=== PATIENT | female | born 1980 | race Caucasian/White ===

== ENCOUNTER 2016-05-13 08:27 | Emergency (ER) | payer OTHER ==
[~2016-05-13] VITALS: Ht 165.1 cm; Wt 84.4 kg
[~2016-05-13 08:27] MED LIST: ABILIFY 10 MG10 MG PO; ABILIFY10 M1 PO; BENZTROPINE1 MG PO; CLONAZEPAM0.5 MG PO; CLONIDINE HCL0.1 MG PO; CYCLOBENZAPRINE10 M1 PO; DEXTROAMP-AMPHE30 MG PO; DIAZEPAM10 M1 PO; DICLOFENAC SODI75 M2 PO; DIVALPROEX SOD500 M1 PO; DOLOPHINE10 MG PO; DULOXETINE HCL30 MG PO; NEXIUM40 M1 PO; OXCARBAZEPINE300 MG PO; PREDNICOT20 MG PO; PROPRANOLOL HCL20 MG PO; THORAZINE50 MG PO; TOPAMAX25 M3 PO; VALIUM5 M1 PO
--- NOTE | 2016-05-13 08:40 | ED SKIN/ALLERGY COMPLAINT ---
History of Present Illness General Chief Complaint: Animal/Insect Bite Stated Complaint: SPIDER BITES ON BOTH FEET Source: patient, old records Exam Limitations: no limitations Vital Signs & Intake/Output Vital Signs & Intake/Output Vital Signs Date Time Temp Pulse Resp B/P Pulse O2 O2 Flow FiO2 Ox Delivery Rate 05/13 1256 98.7 114 18 147/86 99 Room Air 05/13 1024 100.0 118 18 160/90 98 Room Air 05/13 0831 98.0 120 20 157/93 98 Room Air Allergies Coded Allergies: Sulfa (Sulfonamide Antibiotics) (Intermediate, HIVES 05/13/16) Reconcile Medications Aripiprazole (Abilify) 10 MG TABLET 1 TAB PO DAILY MENTAL HEALTH (Reported) Clonidine HCl 0.1 MG TABLET 1 TAB PO TID MENTAL HEALTH (Reported) Dextroamphetamine/Amphetamine (Dextroamp-Amphetamin 30 MG Tab) 30 MG TABLET 1 TAB PO DAILY ADHD (Reported) Dextroamphetamine/Amphetamine (Dextroamp-Amphet ER 15 MG Cap) 15 MG CAP.ER.24H 1 CAP PO 1600 ADHD (Reported) Doxycycline Hyclate (Vibramycin) 100 MG CAPSULE 1 CAP PO BID infection Doxycycline Hyclate (Vibramycin) 100 MG CAPSULE 1 CAP PO BID infection Duloxetine HCl 30 MG CAPSULE.DR 1 CAP PO DAILY MENTAL HEALTH (Reported) Esomeprazole (Nexium) 40 MG CAPSULE.DR 1 CAP PO DAILY GI (Reported) Lorazepam (Ativan) 1 MG TABLET 1 TAB PO TID ANXIETY (Reported) Methadone HCl 10 MG/ML ORAL.CONC 110 MG PO DAILY MAINTENCE (Reported) Oxycodone HCl/Acetaminophen (Percocet 10-325 MG Tablet) 10 MG-325 MG TABLET 1 TAB PO Q6 PRN pain Oxycodone HCl/Acetaminophen (Percocet 10-325 MG Tablet) 10 MG-325 MG TABLET 1 TAB PO Q6 PRN pain Topiramate (Topamax) 25 MG TABLET 1 TAB PO DAILY MENTAL HEALTH (Reported) Triage Note: TRIAGE: PT TO ER C/C SPIDER BITES BILATERAL FEET. SEEN AT [facility]IC ON FRIDAY FOR SAME. HAS BEEN TAKING ABX AND TYLENOL. WAS ADVISED TO FOLLOW UP IN ER IF NOT IMPROVED BY TODAY. STATES NOT IMPROVING. Triage Nurses Notes Reviewed? yes : No Patient currently breastfeeds: No HPI: Patient is a 35 year old female presents complaining of bilateral foot pain and redness. Patient awoke on with symptoms. Worsening since onset. Patient was seen at an urgent care clinic on Friday and placed on Keflex 3 times a day. Also taking Benadryl 4 times a day with no improvement. Pain is sharp, 10/10, worsens with palpation. Patient with history of IV drug use, reports that she is on Methadone, has been clean for 3 years. Denies fevers, chills, nausea, vomiting, recent drug use, drainage from the area. (MARLENI SAAVEDRA) Past History Travel History Traveled to [place] past 21 day No Medical History Any Pertinent Medical History? see below for history Neurological: NONE EENT: NONE Cardiovascular: NONE Respiratory: NONE Gastrointestinal: NONE Hepatic: NONE Renal: NONE Musculoskeletal: herniated discs cervical spine Psychiatric: opioid dependence Endocrine: NONE Blood Disorders: NONE Cancer(s): NONE DRILL RIG OPERATOR HELPER/Reproductive: NONE Surgical History Surgical History: non-contributory Psychosocial History Who do you live with Friend What is your primary language Mosotho Tobacco Use: Current Daily Use Daily Tobacco Use Amount/Type: => 5 Cigarettes daily ETOH Use: denies use Illicit Drug Use: marijuana, Heroin, currently on methadone, reports no IVDA for 3 years Family History Hx Contributory? No (MARLENI SAAVEDRA) Review of Systems Review of Systems Constitutional: Denies: chills, fever. EENTM: Reports: no symptoms. Respiratory: Reports: no symptoms. Cardiovascular: Denies: chest pain. GI: Denies: abdominal pain, nausea, vomiting. Genitourinary: Reports: no symptoms. Musculoskeletal: Reports: see HPI. Skin: Reports: see HPI. Neurological/Psychological: Denies: numbness, paresthesia. Hematologic/Endocrine: Denies: bruising, bleeding. Immunologic/Allergic: Denies: splenectomy. (MARLENI SAAVEDRA) Physical Exam Physical Exam General Appearance: alert, awake Head: atraumatic, normal appearance Eyes: Bilateral: normal appearance, PERRL, EOMI. Ears, Nose, Throat: hearing grossly normal Neck: normal inspection, supple, full range of motion Respiratory: no respiratory distress Cardiovascular: tachycardia (regular rhythm) Peripheral Pulses: 2+ dorsalis pedis (R), 2+ dorsalis pedis (L) Back: normal inspection, normal range of motion Extremities: right foot: 16 cm x 10 cm area of erythema, warmth, tenderness to the lateral dorsal surface. No fluctuance. Left foot: 11 cm x 7 cm area of erythema, warmth, tenderness to the dorsal surface. 0.5 cm raised area in the center. Vein vs abscess? Neurologic/Psych: awake, alert, oriented x 3 Skin: see extremities exam (SHAR ROMERO,MARLENI) Progress Differential Diagnosis: abscess/cellulitis, foreign body, necrotizing fasciitis Plan of Care: Orders Procedure Date/time Status LACTIC ACID 05/13 1154 Complete EXTREMETIES CULTURE 05/14 1151 Active BLOOD CULTURE 05/13 854 Active URINE DRUGS OF ABUSE 05/13 854 Complete URINE 05/13 854 Complete LACTIC ACID 05/13 854 Complete COMPREHENSIVE METABOLIC PANEL 05/13 854 Complete CBC WITHOUT DIFFERENTIAL 05/13 854 Complete Laboratory Tests 05/13/16 1148: Lactic Acid 2.2 H 05/13/16 1013: Urine Opiates Screen < 100.00, Methadone Screen > 735 H, Barbiturate Screen < 60, Ur Phencyclidine Scrn 9.50, Amphetamines Screen > 1450 H, U Benzodiazepines Scrn 176, Urine Cocaine Screen < 50, Urine Cannabis Screen > 80.00 H, Urine Test NEGATIVE 05/13/16 0910: Anion Gap 10, Estimated GFR > 60, BUN/Creatinine Ratio 10.0, Glucose 115 H, Lactic Acid 2.3 H, Calcium 9.6, Total Bilirubin 0.4, AST 53 H, ALT 99 H, Alkaline Phosphatase 92, Total Protein 7.3, Albumin 4.0, Globulin 3.3, Albumin/ Globulin Ratio 1.2, CBC w Diff NO MAN DIFF REQ, RBC 4.35, MCV 87.7, MCH 29.6, RDW 13.0, MPV 8.8, Gran % 57.4, Lymphocytes % 30.0, Monocytes % 5.2, Eosinophils % 7.0 H, Basophils % 0.4, Absolute Granulocytes 4.5, Absolute Lymphocytes 2.3, Absolute Monocytes 0.4, Absolute Eosinophils 0.5, Absolute Basophils 0, PUBS MCHC 33.8 Microbiology 05/13 115 EXTREMITIE: Culture & Sensitivity - RECD 05/13 115 EXTREMITIE: Gram Stain - RECD 05/13 1008 BLOOD: Blood Culture - RECD 05/13 0910 BLOOD: Blood Culture - RECD Patient is on methadone. No improvement with Toradol. Discussed with her, her history of opiate abuse, patient reports she has received other pain medication prescriptions without relapase. Patient requesting further pain medication. Results discussed with patient. Patient requesting further pain medication. Discussed with and seen by Dr. Laguerre. When patient informed that she would not be receiving IV pain medication patient became very upset and argumentative with staff. (SHAR ROMERO,MARLENI) Diagnostic Imaging: Viewed by Me: Ultrasound. Discussed w/RAD: Ultrasound. Radiology Impression: PATIENT: KELTON TAYLOR PRESENT AGE: 35 PATIENT ACCOUNT NO: [id number] : 82 LOCATION: [facility] ORDERING PHYSICIAN: MARLENI ROMERO SERVICE DATE: 05/13/16 EXAM TYPE: US - US-SUPERFICIAL IMAGING EXTREMI EXAMINATION: US SUPERFICIAL IMAGING, EXTREMITY CLINICAL INFORMATION: Infection in the left foot, dorsal surface. Evaluate for abscess. COMPARISON: None TECHNIQUE: Focused ultrasound assessment of the dorsal left midfoot was performed in region of patient's erythema and tenderness. FINDINGS: There is diffuse skin thickening present with some hyperemia demonstrated on color Doppler assessment. In addition, there is an irregularly shaped slightly thick walled hypoechoic fluid collection with low-level internal echoes is seen in the deeper layers of the skin, measuring 1.6 x 0.7 x 1.2 cm with surrounding hyperemia, suspicious for a small localized abscess collection. This is superficial to the underlying musculature and bones. No drainage site to the skin is seen. IMPRESSION: Above findings are consistent with diffuse cellulitis and small localized complex fluid collection, suspicious for an abscess. DICTATED BY: MARIA GUADALUPE SHARMA MD DATE/TIME DICTATED:05/13/16935 PULP DRIER:DOMENICA DATE/TIME TRANSCRIBED:05/13/16935 CONFIDENTIAL, DO NOT COPY WITHOUT APPROPRIATE AUTHORIZATION. <Electronically signed in Other Vendor System> SIGNED BY: MARIA GUADALUPE SHARMA MD 05/13/16 0943, PATIENT: KELTON TAYLOR PRESENT AGE: 35 PATIENT ACCOUNT NO: [id number] : 82 LOCATION: [facility] ORDERING PHYSICIAN: MARLENI ROMERO SERVICE DATE: 05/13/16 EXAM TYPE: RAD - XRY-FOOT COMPLETE, LEFT; XRY-FOOT COMPLETE, R EXAMINATION: XR FOOT, RIGHT XR FOOT, LEFT CLINICAL INFORMATION: Infection bilateral dorsally, question osteomyelitis. COMPARISON: None TECHNIQUE : 3 views FINDINGS: Bone mineral density is maintained without evidence of fracture or focal osseous lesions. Joint space height appears well-maintained. No destructive or sclerotic osseous lesions. There is mild circumferential soft tissue prominence. IMPRESSION: No evidence of osteomyelitis. DICTATED BY: LEVI JARVIS MD DATE/TIME DICTATED:05/13/161107 PULP DRIER:DOMENICA DATE/TIME TRANSCRIBED:05/13/161107 CONFIDENTIAL, DO NOT COPY WITHOUT APPROPRIATE AUTHORIZATION. <Electronically signed in Other Vendor System> SIGNED BY: LEVI JARVIS MD 05/13/16 1120 (MARLENI SAAVEDRA) Departure Departure Disposition: HOME OR SELF CARE Condition: Stable Clinical Impression Primary Impression: Cellulitis of foot, right Secondary Impressions: Abscess of left foot Referrals: DEMETRIUS MATAMOROS Additional Instructions: Stop taking the Keflex, start taking doxycycline. Return to the emergency department on Friday for recheck. Return immediately if temperature going above 100.4, redness spreading, or worsening of symptoms. Departure Forms: Customer Survey General Discharge Information Prescriptions: Current Visit Scripts Doxycycline Hyclate (Vibramycin) 1 CAP PO BID #14 CAP Oxycodone HCl/Acetaminophen (Percocet 10-325 MG Tablet) 1 TAB PO Q6 PRN pain #8 TAB Doxycycline Hyclate (Vibramycin) 1 CAP PO BID #14 CAP Oxycodone HCl/Acetaminophen (Percocet 10-325 MG Tablet) 1 TAB PO Q6 PRN pain #8 TAB (MARLENI SAAVEDRA) Departure Comments 05/13/16 2 PM 2 PM I saw and evaluated the patient and I agree with the PAs evaluation. She has cellulitis to the right ankle and status post I&D of abscess to the left foot. The patient was insistent upon getting stronger pain medication. We discussed discussed non-opiate analgesics, and a short course of Percocet, she is currently on methadone. The patient will be reevaluated after 48 hours of antibiotics. (ZOE LAGUERRE DO
[2016-05-13 09:23] LABS: ABSOLUTE BASOPHIL COUNT 0 /CUMM (0.0-0.2); ABSOLUTE EOSINOPHIL COUNT 0.5 /CUMM (0.0-0.7); ABSOLUTE GRANULOCYTE CT 4.5 /CUMM (1.4-6.5); ABSOLUTE LYMPH COUNT 2.3 /CUMM (1.2-3.4); ABSOLUTE MONOCYTE COUNT 0.4 /CUMM (0.10-0.60); BASOPHIL % 0.4 % (0.0-2.0); GRANULOCYTE % 57.4 % (42.2-75.2); HEMATOCRIT 38.1 % (37-47); MEAN CORPUSCULAR HGB 29.6 PG (27.0-31.0); MEAN CORPUSCULAR HGB CONC 33.8 G/DL (33.0-37.0); MEAN CORPUSCULAR VOLUME 87.7 FL (81.0-99.0); MEAN PLATELET VOLUME 8.8 FL (7.4-10.4); PLATELET COUNT 239 /CUMM (130-400); RED BLOOD CELL CT 4.35 /CUMM (4.20-5.40); WHITE BLOOD CELL COUNT 7.8 /CUMM (4.8-10.8)
--- NOTE | 2016-05-13 09:43 | ULTRASOUND REPORT ---
EXAMINATION: US SUPERFICIAL IMAGING, EXTREMITY CLINICAL INFORMATION: Infection in the left foot, dorsal surface. Evaluate for abscess. COMPARISON: None TECHNIQUE: Focused ultrasound assessment of the dorsal left midfoot was performed in region of patient's erythema and tenderness. FINDINGS: There is diffuse skin thickening present with some hyperemia demonstrated on color Doppler assessment. In addition, there is an irregularly shaped slightly thick walled hypoechoic fluid collection with low-level internal echoes is seen in the deeper layers of the skin, measuring 1.6 x 0.7 x 1.2 cm with surrounding hyperemia, suspicious for a small localized abscess collection. This is superficial to the underlying musculature and bones. No drainage site to the skin is seen. IMPRESSION: Above findings are consistent with diffuse cellulitis and small localized complex fluid collection, suspicious for an abscess.
[2016-05-13] MEDS ORDERED: ATIVAN1 M1 PO (10:24)
[2016-05-13] MEDS ORDERED: DEXTROAMP-AMPHE15 M1 PO (10:25)
[2016-05-13] MEDS ORDERED: METHADONE10 MG/1 M2 PO (10:26)
--- NOTE | 2016-05-13 11:20 | RADIOLOGY REPORT ---
EXAMINATION: XR FOOT, RIGHT XR FOOT, LEFT CLINICAL INFORMATION: Infection bilateral dorsally, question osteomyelitis. COMPARISON: None TECHNIQUE: 3 views FINDINGS: Bone mineral density is maintained without evidence of fracture or focal osseous lesions. Joint space height appears well-maintained. No destructive or sclerotic osseous lesions. There is mild circumferential soft tissue prominence. IMPRESSION: No evidence of osteomyelitis.
[2016-05-13 12:56] VITALS: BP 147/86
[2016-05-13] MEDS ORDERED: VIBRAMYCIN100 MG PO ×2 (13:00→14:09)
[2016-05-13] MEDS ORDERED: PERCOCET 10-321 EACH PO ×2 (13:00→14:09)
== END 2016-05-13 14:15 ==
LOC: ERH 08:27
PROVIDERS: Physician Assistant
DX: L02.612 Cutaneous abscess of left foot (principal); L03.115 Cellulitis of right lower limb
CPT/HCPCS: 73630-LT; 73630-RT; 76881; 80307; 81025; 87040; 87070; 96374; 96375; J1885; J3370; J7040

== ENCOUNTER 2016-05-15 09:22 | Emergency (ER) | payer OTHER ==
[~2016-05-15] VITALS: Ht 165.1 cm; Wt 84.4 kg
[~2016-05-15 09:22] MED LIST changes: +ATIVAN1 M1 PO; +DEXTROAMP-AMPHE15 M1 PO; +METHADONE10 MG/1 M2 PO; +PERCOCET 10-321 EACH PO; +VIBRAMYCIN100 MG PO
[2016-05-15 09:30] VITALS: BP 129/87
--- NOTE | 2016-05-15 09:48 | ED ANIMAL BITE/WOUND CHECK ---
History of Present Illness General Chief Complaint: Suture Removal/Wound Recheck Stated Complaint: WOUND CHECK Source: patient, old records Exam Limitations: no limitations Vital Signs & Intake/Output Vital Signs & Intake/Output Vital Signs Date Time Temp Pulse Resp B/P Pulse O2 O2 Flow FiO2 Ox Delivery Rate 05/15 0930 96.7 86 20 129/87 98 Room Air Allergies Coded Allergies: Sulfa (Sulfonamide Antibiotics) (Intermediate, HIVES 05/13/16) Reconcile Medications Aripiprazole (Abilify) 10 MG TABLET 1 TAB PO DAILY MENTAL HEALTH (Reported) Clonidine HCl 0.1 MG TABLET 1 TAB PO TID MENTAL HEALTH (Reported) Dextroamphetamine/Amphetamine (Dextroamp-Amphetamin 30 MG Tab) 30 MG TABLET 1 TAB PO DAILY ADHD (Reported) Dextroamphetamine/Amphetamine (Dextroamp-Amphet ER 15 MG Cap) 15 MG CAP.ER.24H 1 CAP PO 1600 ADHD (Reported) Doxycycline Hyclate (Vibramycin) 100 MG CAPSULE 1 CAP PO BID infection Duloxetine HCl 30 MG CAPSULE.DR 1 CAP PO DAILY MENTAL HEALTH (Reported) Esomeprazole (Nexium) 40 MG CAPSULE.DR 1 CAP PO DAILY GI (Reported) Lorazepam (Ativan) 1 MG TABLET 1 TAB PO TID ANXIETY (Reported) Methadone HCl 10 MG/ML ORAL.CONC 110 MG PO DAILY MAINTENCE (Reported) Oxycodone HCl/Acetaminophen (Percocet 10-325 MG Tablet) 10 MG-325 MG TABLET 1 TAB PO Q6 PRN pain Topiramate (Topamax) 25 MG TABLET 1 TAB PO DAILY MENTAL HEALTH (Reported) Triage Note: PT TO ED FOR WOUND CHECK TO B/L FEET. PT WAS HERE FRIDAY FOR "ABSCESS" TO LEFT FOOT STATES IT "WAS LANCED". STATES SHE JUST VOMITED IN THE BATHROOM FROM THE PAIN. PT NOTED WITH SANCHEZ SANDOVAL, ADVISED THAT IF SHE JUST VOMITED, SHE SHOULD REMAIN NPO AT THIS TIME. Triage Nurses Notes Reviewed? yes Onset: Abrupt Duration: day(s):, constant, continues in ED Timing: recent history Injury Environment: home No Modifying Factors: none : No Patient currently breastfeeds: No HPI: 35-year-old female comes into emergency room for wound check to her feet. Patient was seen here the other day and had an abscess drained on the left foot. Patient also had a cellulitis. Patient was treated with oral antibiotics. Patient comes back in today for packing removal. Redness has decreased. Patient still complaining of sharp throbbing pain. Denies any fever or chills. (MARLENE SADLER) Past History Travel History Traveled to [place] past 21 day No Medical History Any Pertinent Medical History? see below for history Neurological: NONE EENT: NONE Cardiovascular: NONE Respiratory: NONE Gastrointestinal: NONE Hepatic: NONE Renal: NONE Musculoskeletal: herniated discs cervical spine Psychiatric: opioid dependence Endocrine: NONE Blood Disorders: NONE Cancer(s): NONE GUEST SERVICE HOST/Reproductive: NONE Surgical History Surgical History: non-contributory Psychosocial History Who do you live with Friend What is your primary language Tanzanian Tobacco Use: Current Daily Use Daily Tobacco Use Amount/Type: => 5 Cigarettes daily ETOH Use: denies use Illicit Drug Use: denies illicit drug use Family History Hx Contributory? No (MARLENE SADLER) Review of Systems Review of Systems Constitutional: Reports: no symptoms. EENTM: Reports: no symptoms. Respiratory: Reports: no symptoms. Cardiovascular: Reports: no symptoms. GI: Reports: no symptoms. Genitourinary: Reports: no symptoms. Musculoskeletal: Reports: no symptoms. Skin: Reports: see HPI. Neurological/Psychological: Reports: no symptoms. Hematologic/Endocrine: Reports: no symptoms. Immunologic/Allergic: Reports: no symptoms. All Other Systems: Reviewed and Negative (MARLENE SADLER) Physical Exam Physical Exam General Appearance: well developed/nourished, mild distress Head: atraumatic Eyes: Bilateral: normal appearance. Ears, Nose, Throat: normal ENT inspection, hearing grossly normal Neck: normal inspection Respiratory: no respiratory distress Cardiovascular: regular rate/rhythm Back: normal inspection Extremities: erythema and warmth to feet bilaterally, erythema has significant decrease according to the borders that were drawn from previous visit, cap Refill intact Neurologic/Psych: awake, alert, oriented x 3, normal mood/affect Skin: intact, normal color, warm/dry Lymphatic: no anterior cervical janusz (MARLENE SADLER) Progress Differential Diagnosis: abscess, cellulitis, joint infection, tenosysnovitis Plan of Care: Orders Procedure Date/time Status EXTREMETIES CULTURE 05/15 1007 Active Microbiology 05/15 1007 EXTREMITIE: Culture & Sensitivity - RECD 05/15 1007 EXTREMITIE: Gram Stain - RECD Departure Departure Disposition: HOME OR SELF CARE Condition: Stable Clinical Impression Primary Impression: Cellulitis and abscess of foot Secondary Impressions: Wound check, abscess Referrals: CLARISA ROMERO,MAYTE Lau (PCP/Family) Additional Instructions: Warm soaks to both feet. Continue antibiotics. Return in 3 days for another wound check. Return if any other concerns/worsening of symptoms. Please go over all results of today's visit with your primary care doctor. Contact your primary care doctor to let them know you were here in the emergency room. There may be nonspecific findings which may not be related to your visit today here in the emergency room but may require further evaluation and chronic monitoring by your primary care doctor. If you had a laceration today the chance of foreign body always remains. You should follow-up with your primary care doctor for recheck in 3-5 days for a wound check. If you had an x-ray done there is a chance that a fracture could have been missed on initial read and you should follow-up with your primary care doctor for repeat x-rays if symptoms persist. If your blood pressure was elevated here in the emergency room please have rechecked by her primary care doctor within the next 48 hours by your primary care doctor. If you were prescribed a narcotic here in the emergency room or any type of controlled substances you're not allowed to drive while taking this medication or operate any type of heavy machinery. Narcotics can make you feel lightheaded dizziness nausea and can cause constipation. You may need to roll picker a stool softener. Thank you for choosing [facility] emergency room. Please return to the emergency room immediately if you have any other concerns worsening of symptoms. Departure Forms: Customer Survey General Discharge Information (MARLENE SADLER) PA/STENCIL CUTTER Co-Sign Statement Statement: ED Attending supervision documentation- [] I saw and evaluated the patient. I have also reviewed all the pertinent lab results and diagnostic results. I agree with the findings and the plan of care as documented in the PA's/STENCIL CUTTER's documentation. x I have reviewed the ED Record and agree with the PA's/STENCIL CUTTER's documentation. [] Additions or exceptions (if any) to the PAs/STENCIL CUTTER's note and plan are summarized below: [] (KOBI FERREIRA,ÓSCAR) Procedures Incision and Drainage Site: right foot Blade Size: 11 I & D Procedure: Yes: betadine prep, sterile drapes applied, sterile dressing applied. Progress: 1% lidocaine, 3 mL injected, Performed by PA student with my supervision (MARLENE SADLER)
== END 2016-05-15 10:41 ==
LOC: ERH 09:22
DX: L02.612 Cutaneous abscess of left foot (principal); L03.116 Cellulitis of left lower limb
CPT/HCPCS: 87070

== ENCOUNTER 2016-07-31 10:51 | Inpatient (IN) | payer OTHER ==
[~2016-07-31] VITALS: Ht 165.1 cm; Wt 84.4 kg
--- NOTE | 2016-07-31 11:02 | NUR ---
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
--- NOTE | 2016-07-31 11:07 | ED PSYCHIATRIC COMPLAINT ---
History of Present Illness General Chief Complaint: ETOH/Drug Related Complaint Stated Complaint: PSYCH EVAL FOR DEPRESSION,ETOH WITHDRAWL Source: patient, family, old records Exam Limitations: poor historian, intoxication Vital Signs & Intake/Output Vital Signs & Intake/Output Vital Signs Date Time Temp Pulse Resp B/P B/P Pulse O2 O2 Flow FiO2 Mean Ox Delivery Rate 08/01 0541 97.8 71 20 104/56 95 Room Air 07/31 2230 97.1 75 17 111/60 96 Room Air 07/31 2004 97.0 78 18 105/55 97 Room Air 07/31 1800 98.0 77 16 100/59 96 Room Air 07/31 1530 97.8 82 17 108/54 96 Room Air 07/31 1315 97.2 86 16 110/66 96 Room Air 07/31 1102 98.3 89 18 114/74 100 Room Air ED Intake and Output 08/01 0000 07/31 1200 Intake Total Output Total 1 Balance -1 Output, Urine 1 Patient 185 lb Weight Weight Reported by Patient Measurement Method Allergies Coded Allergies: Sulfa (Sulfonamide Antibiotics) (Intermediate, HIVES 05/13/16) Reconcile Medications Aripiprazole (Abilify) 10 MG TABLET 1 TAB PO DAILY MENTAL HEALTH (Reported) Clonidine HCl 0.1 MG TABLET 1 TAB PO TID MENTAL HEALTH (Reported) Dextroamphetamine/Amphetamine (Dextroamp-Amphetamin 30 MG Tab) 30 MG TABLET 1 TAB PO DAILY ADHD (Reported) Dextroamphetamine/Amphetamine (Dextroamp-Amphet ER 15 MG Cap) 15 MG CAP.ER.24H 1 CAP PO 1600 ADHD (Reported) Doxycycline Hyclate (Vibramycin) 100 MG CAPSULE 1 CAP PO BID infection Duloxetine HCl 30 MG CAPSULE.DR 1 CAP PO DAILY MENTAL HEALTH (Reported) Esomeprazole (Nexium) 40 MG CAPSULE.DR 1 CAP PO DAILY GI (Reported) Lorazepam (Ativan) 1 MG TABLET 1 TAB PO TID ANXIETY (Reported) Methadone HCl 10 MG/ML ORAL.CONC 110 MG PO DAILY MAINTENCE (Reported) Oxycodone HCl/Acetaminophen (Percocet 10-325 MG Tablet) 10 MG-325 MG TABLET 1 TAB PO Q6 PRN pain Topiramate (Topamax) 25 MG TABLET 1 TAB PO DAILY MENTAL HEALTH (Reported) Triage Note: PT TO ED WITH [facility] FOR PASSIVE AND INTERMITTENT SI, PT CURRENTLY DENIES SI BUT PRESENTS LETHARGIC AND 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 Triage Nurses Notes Reviewed? yes Unable To Obtain Hx Due To: patient intoxication Onset: Abrupt Duration: day(s): (12), changing over time, continues in ED Timing: single episode today Severity: mild, moderate Associated Symptoms: suicidal ideation, CUTTING LMP (ages 10-50): unknown : No Patient currently breastfeeds: No HPI: 36-year-old female with past medical history of depression, crack cocaine abuse, brought in by for evaluation of substance abuse and possible suicidal ideation. reports that patient had been missing since 2 AM this morning. When her finally saw her she had multiple superficial lacerations to the left forearm he was very intoxicated. Patient had reported she had been smoking crack cocaine and had been cutting herself due to lots of stress. She reports the stress is related to her home situation. Patient denies any history of previous suicide attempts but has cut herself previously. Patient also reports using benzodiazepines and methadone. Her last dose of methadone was today states 110 mg. She denies any chest pain, shortness of breath, palpitations, severe headache, changes in vision, or any other associated symptoms. She denies any alcohol abuse. (BRAVO BARRAGAN PA-C) Past History Travel History Traveled to [place] past 21 day No Medical History Any Pertinent Medical History? see below for history Neurological: NONE EENT: NONE Cardiovascular: NONE Respiratory: NONE Gastrointestinal: NONE Hepatic: NONE Renal: NONE Musculoskeletal: herniated discs cervical spine Psychiatric: opioid dependence Endocrine: NONE Blood Disorders: NONE Cancer(s): NONE BURNER SHAFT/Reproductive: NONE Surgical History Surgical History: non-contributory Psychosocial History Who do you live with Friend What is your primary language Pashto Tobacco Use: Current Daily Use Daily Tobacco Use Amount/Type: => 5 Cigarettes daily ETOH Use: alcoholic Illicit Drug Use: cocaine, heroin, marijuana Family History Hx Contributory? No (BRAVO BARRAGAN PA-C) Review of Systems Review of Systems Constitutional: Reports: no symptoms. EENTM: Reports: no symptoms. Respiratory: Reports: no symptoms. Cardiovascular: Reports: no symptoms. GI: Reports: no symptoms. Genitourinary: Reports: no symptoms. Musculoskeletal: Reports: no symptoms. Skin: Reports: no symptoms. Neurological/Psychological: Reports: see HPI, anxiety, depressed, other (cutting). Hematologic/Endocrine: Reports: no symptoms. Immunologic/Allergic: Reports: no symptoms. All Other Systems: Reviewed and Negative (BRAVO BARRAGAN PA-C) Physical Exam Physical Exam General Appearance: well developed/nourished, no apparent distress, anxious, lethargic Head: atraumatic, normal appearance Eyes: Bilateral: normal appearance, PERRL, EOMI. Ears, Nose, Throat: normal pharynx, normal ENT inspection, hearing grossly normal Neck: normal inspection, supple, full range of motion Respiratory: normal breath sounds, chest non-tender, no respiratory distress, lungs clear Cardiovascular: regular rate/rhythm, normal peripheral pulses Gastrointestinal: normal bowel sounds, soft, non-tender, no organomegaly Extremities: normal range of motion Neurological/Psychiatric: no motor/sensory deficits, awake, anxious, oriented x 3 Appearance/Memory/Insight: appropriate appearance, appropriate insight, denies illness Behavoir/Eye Contact/Speech: cooperative, normal speech, good eye contact Thoughts/Hallucinations: normal thought pattern, no apparent hallucination Skin: intact, normal color, warm/dry Comments: Patient appears very lethargic with her eyes closed most the time. She is answering questions and is alert and oriented 3. There are multiple lacerations located on the left anterior forearm. No active bleeding is present, no swelling, no erythema, no discharge. No subcutaneous tissue is visible. SAD PERSONS Done? unobtained due to conditi (BRAVO BARRAGAN PA-C) Progress Differential Diagnosis: drug intoxication, drug overdose, drug withdrawal, electrolyte abnormality, depression. SI Plan of Care: Orders Procedure Date/time Status Regular Diet 08/01 B Active Admit to inpatient psych 08/01 1005 Active Continuous Observation Monitor 08/01 0649 Active Continuous Observation Monitor 07/31 1122 Active URINE 07/31 1122 Complete URINE DRUG SCREEN FOR ER ONLY 07/31 1122 Complete URINALYSIS 07/31 1122 Complete TROPONIN LEVEL 07/31 1122 Complete MAGNESIUM 07/31 1122 Complete ETHANOL 07/31 1122 Complete COMPREHENSIVE METABOLIC PANEL 07/31 1122 Complete CBC WITHOUT DIFFERENTIAL 07/31 1122 Complete EKG 07/31 1122 Active ED CRISIS PSYCH CONSULT 07/31 1122 Active Current Medications Sig/Bella Start time Last Medication Dose Stop Time Status Admin Methadone HCl 110 MG DAILY 08/01 1000 AC (Dolophine) Laboratory Tests 07/31/16 2225: Urine Opiates Screen < 100.00, Methadone Screen > 735 H, Barbiturate Screen 70, Ur Phencyclidine Scrn 10.00, Amphetamines Screen > 1450 H, U Benzodiazepines Scrn 126, Urine Cocaine Screen > 1000 H, Urine Cannabis Screen 78.00 H, Urine Color YEL, Urine Clarity CLEAR, Urine pH 6.0, Ur Specific [place] >= 1.030, Urine Protein NEG, Urine Ketones NEG, Urine Nitrite NEG, Urine Bilirubin NEG, Urine Urobilinogen 1.0, Ur Leukocyte Esterase NEG, Ur Microscopic EXAM NOT REQUIRED, Urine Hemoglobin NEG, Urine Glucose NEG, Urine Test NEGATIVE 07/31/16 1137: Anion Gap 10, Estimated GFR > 60, BUN/Creatinine Ratio 13.8, Glucose 78, Calcium 9.4, Magnesium 2.0, Total Bilirubin 0.5, AST 19, ALT 25, Alkaline Phosphatase 40 , Troponin I < 0.01, Total Protein 6.8, Albumin 4.4, Globulin 2.4, Albumin/ Globulin Ratio 1.8, CBC w Diff NO MAN DIFF REQ, RBC 4.26, MCV 86.9, MCH 29.3, RDW 14.1, MPV 9.2, Gran % 54.4, Lymphocytes % 36.0, Monocytes % 6.3, Eosinophils % 2.9, Basophils % 0.4, Absolute Granulocytes 3.5, Absolute Lymphocytes 2.3, Absolute Monocytes 0.4, Absolute Eosinophils 0.2, Absolute Basophils 0, PUBS MCHC 33.7, Serum Alcohol < 10.0 Patient will have basic blood work and EKG to ensure she is medically stabilized. She will then have a crisis consult. Blood work is within normal limits. Patient has still not provided us with a urine. We are also waiting on a crisis consult. 6:39 PM: Patient is still not provided here and she has been asleep in her room. Vital signs have remained stable. 11 3 PM spoke with crisis. They're to watch her overnight and reevaluate her in the morning. Patient was advised to drink plenty fluids as her urine was quite concentrated. Crisis also asked for her home meds be put in his given Abilify clonidine duloxetine Ativan and wellbutrin.pt will be signed out to Dr Gil. (YUNG GERMAN,BRAVO) Diagnostic Imaging: Viewed by Me: Radiology Read. Initial ED EKG: nsr, BORDERLINE PROLONGED QT Hand-Off Endorsed To: CEFERINO GIL MD Endorsed Time: 2318 Pending: consult (crisis) (BRAVO BARRAGAN PA-C) Hand-Off Endorsed To: RASHARD SAM MD Endorsed Time: 07 Pending: consult (CEFERINO GIL MD) Departure Departure Disposition: STILL A PATIENT Condition: Stable Referrals: MAYTE CARDONA (PCP/Family) Departure Forms: Customer Survey General Discharge Information (BRAVO BARRAGAN PA-C) Departure Clinical Impression Primary Impression: Major depression Secondary Impressions: Cocaine abuse, Intentional self-harm Psych Admission Note Psychiatric Admission: I have seen and evaluated BRANDONKELTON. I have also reviewed all the pertinent lab results and diagnostic results. BRANDONKELTON MOBLEY will be admitted to our inpatient Psychiatric unit for treatment and care. (RASHARD SAM MD)
--- NOTE | 2016-07-31 11:20 | NUR ---
PATIENT WAS BROUGHT TO ER BY RAQUEL AND NOTED TO BE VERY SLEEPY AND CONTINOUSLY FALLING ASLEEP WHILE ATTEMPTING TO INTERVIEW HER. PER FIANCE PT DISAPPEARED SINCE 2AM AND HE JUST FOUND HER. PT ARRIVES VERY DROWZY AND DIFFICULT TO AROUSE BUT ABLE TO SPEAK IN ONE TO TWO SENTENCES WHEN FINALLY AROUSED. PT STS SHE SMOKED CRACK COCAINE,MARIJUANA AND CIGARETTES. PT STS SHE ALSO TOOK HER DOSE OF METHADONE WHICH IS 110 MG, ALSO ON ATIVAN BUT STS SHE DID NOT TAKE ANY TODAY. PT ALSO NOTED TO HAVE LT ARM SUPERFICIAL CUTTINGS TO ARM THAT SHE STS OCCURRED THIS MORNING AND PER RAQUEL SHE DID NOT HAVE THAT PRIOR TO HER DISAPPEARANCE. PT STS SHE IS +SI/HI AND VERY STRESSED WHICH CAUSED HER TO ACT THE WAY SHE DID. PT STS SHE LEAVES ON [place] AND EVERYONE JUST COMES AND GOES THEY PLEASED AND SHE HAS NO PRIVACY. PT INFORMED OF ALL OF OUR PROTOCOLS AND AGREEABLE, ALSO REQUESTED TO HAVE RAQUEL TAKE ALL HER VALUABLES. [facility] PT WAS EVALUATED BY HEATHER BARRAGAN
--- NOTE | 2016-07-31 11:37 | NUR ---
KELTON TAYLOR Nurse Note by: ARPIT RAO. I agree with the AUCTIONEER ART findings/evaluation of this patient's condition. Entered by: ARPIT RAO. Date: 07/31/16 Time: 0387
--- NOTE | 2016-07-31 11:38 | NUR ---
ANA AND LABS BEEN COMPLETED BY [facility] CLARISSE Elkins
[2016-07-31 11:52] LABS: ABSOLUTE BASOPHIL COUNT 0 /CUMM (0.0-0.2); ABSOLUTE EOSINOPHIL COUNT 0.2 /CUMM (0.0-0.7); ABSOLUTE GRANULOCYTE CT 3.5 /CUMM (1.4-6.5); ABSOLUTE LYMPH COUNT 2.3 /CUMM (1.2-3.4); ABSOLUTE MONOCYTE COUNT 0.4 /CUMM (0.10-0.60); BASOPHIL % 0.4 % (0.0-2.0); EOSINOPHIL % 2.9 % (0-5); GRANULOCYTE % 54.4 % (42.2-75.2); MEAN CORPUSCULAR HGB 29.3 PG (27.0-31.0); MEAN CORPUSCULAR HGB CONC 33.7 G/DL (33.0-37.0); MEAN CORPUSCULAR VOLUME 86.9 FL (81.0-99.0); MEAN PLATELET VOLUME 9.2 FL (7.4-10.4); PLATELET COUNT 192 /CUMM (130-400); RBC DISTRIBUTION WIDTH 14.1 % (11.5-14.5); RED BLOOD CELL CT 4.26 /CUMM (4.20-5.40); WHITE BLOOD CELL COUNT 6.5 /CUMM (4.8-10.8)
--- NOTE | 2016-07-31 12:39 | NUR ---
UNABLE TO VERIFY HOME MEDS DUE TO CURRENT CIRCUMSTANCES
--- NOTE | 2016-07-31 13:16 | NUR ---
PT NOTED SNORRING BUT VERY DIFFICULT TO AROUSE. ATTEMPT TO PROVIDE URINE UNSUCCESSFUL
--- NOTE | 2016-07-31 14:26 | NUR ---
LABS DRAWN. SST, LAV, BLUE AND ST
--- NOTE | 2016-07-31 14:30 | NUR ---
PT STILL SLEEPING WITH REGULAR RESPIRATIONS AND NO DISTRESS NOTED. STILL AROUSABLE WITH TOUCH. SITTER REMAINS AT DOOR
--- NOTE | 2016-07-31 15:54 | NUR ---
PT STILL SLEEPING AND NO DISTRESS AND SITTER AT BEDSIDE
--- NOTE | 2016-07-31 17:12 | NUR ---
PT STILL VERY SLEEPY BUT AWAKENS TO VERBAL/TOUCH AROUSAL. SITTER REMAINS AT DOOR
--- NOTE | 2016-07-31 18:01 | NUR ---
PT OFFERED SOMETHING TO EAT AND STILL SLEEPY TO EASILY AROUSED AND OFFERED MEAL BUT DECLINED FAMILY AT BEDSIDE TO VISIT NOW
--- NOTE | 2016-07-31 20:15 | NUR ---
PT AWOKE AND ATE AND DRANK SOMETHING BUT STILL SLEEPING BUT NOW RESPONDS TO NAME AND ATTEMPTS TO RISE. NO DISTRESS AND SITTER AT DOOR
--- NOTE | 2016-07-31 22:28 | NUR ---
PT AWAKE AND AWARE OF SURROUNDINGS, STS SHE REMEMBERS COMING IN AND FAMILY VISITING LATER TODAY BUT NOT ANYTHING MUCH. PT PROVIDED URINE AND ALSO REQUESTED TO HAVE SOME WATER. PT GIVEN SNACK AND WATCHING TV. VITALS COMPLETED
--- NOTE | 2016-07-31 23:22 | ED PSYCH CRISIS CONSULTATION ---
Crisis Consult Basic Assessment Date of Consult: 07/31/16 Responsible Person/Accompanied By: self Insurance Authorization: Insurance #1: Insurance name: MARGO George C&A Phone number: Policy number: [id number] Group number: Authorization number: ED Provider: Patient's ED Provider: BRAVO BARRAGAN PA-C Primary Care Physician: Patient's PCP: MAYTE CARDONA PCP's Current Psychiatrist: Dr Gonsalez Chief Complaint: ETOH/Drug Related Complaint Patient's Quote: I'm suicidal all the time Present Illness: Pt is a 36 yo female brought to [place] ED this morning by her fiance. Pt reports leaving the home at 2am to score crack cocaine. Pt reports that she was clean for 2.5 yrs after an inpatient detox at [facility]. Pt reports long standing hx of mental health and substance abuse and has been on methadone maintence past 10yrs. Pt reports receiving methadone 110mg at [place] and is treated for depression and bipolar personality d/o by Dr Whipple in [place]. Pt reports increase stress and depression prior to relapse. Pt gave self-inflicted cuts to arm early this morning "to try to take away the pain". Pt reports being suicidal "all the time" and lately wishes she would act upon it. Pt reports no prior attempts. Pt reports daily cannabis use and denies etoh use. Pt reports her father was an alcoholic. Pt presents as tearful, lethargic and OX3. Pt expressing need for inpatient psychiatric treatment. Patient's Address: [address] [place] [address] Other Phone Number: Who Do You Live With? Family ( and son (10yo)) Family/Informants Interviewed: c Allergies - Coded Allergies: Sulfa (Sulfonamide Antibiotics) (Intermediate, HIVES 05/13/16) Current Medications - Scheduled Medications Aripiprazole (Abilify) 10 MG TABLET 1 TAB PO DAILY MENTAL HEALTH #30 ( Reported) Entered as Reported by NEAL DOMÍNGUEZ on 10/13/15 0952 Clonidine HCl 0.1 MG TABLET 1 TAB PO TID MENTAL HEALTH #90 (Reported) Entered as Reported by NEAL DOMÍNGUEZ on 10/13/15 0954 Dextroamphetamine/Amphetamine (Dextroamp-Amphetamin 30 MG Tab) 30 MG TABLET 1 TAB PO DAILY ADHD #45 (Reported) Entered as Reported by NEAL DOMÍNGUEZ on 10/13/15 0953 Dextroamphetamine/Amphetamine (Dextroamp-Amphet ER 15 MG Cap) 15 MG CAP.ER.24H 1 CAP PO 1600 ADHD (Reported) Entered as Reported by NEAL DOMÍNGUEZ on 05/13/16 1025 Doxycycline Hyclate (Vibramycin) 100 MG CAPSULE 1 CAP PO BID infection #14 CAP Prescribed by MARLENI SAAVEDRA on 05/13/16 Duloxetine HCl 30 MG CAPSULE. 1 CAP PO DAILY MENTAL HEALTH #30 (Reported) Entered as Reported by NEAL DOMÍNGUEZ on 10/13/15 0952 Esomeprazole (Nexium) 40 MG CAPSULE.DR 1 CAP PO DAILY GI #30 (Reported) Entered as Reported by NEAL DOMÍNGUEZ on 10/13/15 0953 Lorazepam (Ativan) 1 MG TABLET 1 TAB PO TID ANXIETY (Reported) Entered as Reported by NEAL DOMÍNGUEZ on 05/13/16 1024 Methadone HCl 10 MG/ML ORAL.CONC 110 MG PO DAILY MAINTENCE (Reported) Entered as Reported by NEAL DOMÍNGUEZ on 05/13/16 1026 Topiramate (Topamax) 25 MG TABLET 1 TAB PO DAILY MENTAL HEALTH (Reported) Entered as Reported by NEAL DOMÍNGUEZ on 10/13/15 0953 Scheduled PRN Medications Oxycodone HCl/Acetaminophen (Percocet 10-325 MG Tablet) 10 MG-325 MG TABLET 1 TAB PO Q6 PRN pain #8 TAB Prescribed by MARLENI SAAVEDRA on 05/13/16 Laboratory Results: Laboratory Tests 07/31/16 2225: Urine Opiates Screen < 100.00, Methadone Screen > 735 H, Barbiturate Screen 70, Ur Phencyclidine Scrn 10.00, Amphetamines Screen > 1450 H, U Benzodiazepines Scrn 126, Urine Cocaine Screen > 1000 H, Urine Cannabis Screen 78.00 H, Urine Color YEL, Urine Clarity CLEAR, Urine pH 6.0, Ur Specific [place] >= 1.030, Urine Protein NEG, Urine Ketones NEG, Urine Nitrite NEG, Urine Bilirubin NEG, Urine Urobilinogen 1.0, Ur Leukocyte Esterase NEG, Ur Microscopic EXAM NOT REQUIRED, Urine Hemoglobin NEG, Urine Glucose NEG, Urine Test NEGATIVE 07/31/16 1137: Anion Gap 10, Estimated GFR > 60, BUN/Creatinine Ratio 13.8, Glucose 78, Calcium 9.4, Magnesium 2.0, Total Bilirubin 0.5, AST 19, ALT 25, Alkaline Phosphatase 40 , Troponin I < 0.01, Total Protein 6.8, Albumin 4.4, Globulin 2.4, Albumin/ Globulin Ratio 1.8, CBC w Diff NO MAN DIFF REQ, RBC 4.26, MCV 86.9, MCH 29.3, RDW 14.1, MPV 9.2, Gran % 54.4, Lymphocytes % 36.0, Monocytes % 6.3, Eosinophils % 2.9, Basophils % 0.4, Absolute Granulocytes 3.5, Absolute Lymphocytes 2.3, Absolute Monocytes 0.4, Absolute Eosinophils 0.2, Absolute Basophils 0, PUBS MCHC 33.7, Serum Alcohol < 10.0 (JIMENEZ ARGUETA,SAVAGE) Basic Assessment Patient's Address: [address] [place] [address] Other Phone Number: (wildcraft,SORAIDA) Past History Past Medical History Neurological: NONE EENT: NONE Cardiovascular: NONE Respiratory: NONE Gastrointestinal: NONE Hepatic: NONE Renal: NONE Musculoskeletal: herniated discs cervical spine Psychiatric: opioid dependence Endocrine: NONE Blood Disorders: NONE Cancer(s): NONE GEOTECHNICAL OPERATING ENGINEER/Reproductive: NONE Past Surgical History Surgical History: non-contributory Psychosocial History Strengths/Capabilities: supportive family reports wanting help to feel better Physical Limitations (Interventions): none Psychiatric Treatment History Psych Treatment Psychiatric Treatment Yes Inpatient Treatment Yes Outpatient Treatment Yes Location of Treatment [facility], [place] Reason for Treatment Opiate dependence depression borderline personality Dates of Treatment multiple treatment episodes past 10yrs Response to Treatment pt reports she has been clean for 2.5 yrs prior to relapse yesterday Diagnosis by History: Opiate dependence cocaine (crack) abuse Borderline personality Substance Use/Abuse History Drug Use/Abuse 1 Substances Used/Abused Yes Substance Used/Abused Prescribed Opiates Last Used yesterday How much used/taken 110mg Drug Use/Abuse 2 Substances Used/Abused Yes Substance Used/Abused Crack Cocaine Last Used yesterday How often reports 1st time in 2.5 yrs Drug Use/Abuse 3 Substances Used/Abused Yes Substance Used/Abused Marijuana Last Used yesterday How often daily Substance Abuse Treatment Substance Abuse Treatment Past Substance Abuse TX Yes Inpatient Treatment Yes Outpatient Treatment Yes Location of Treatment [facility], [place] Comments: pt reports she was clean for 2.5 yrs following detox at [facility]. Pt reports last night crack cocaine, ambian, soma and marijuana. Pt reports no etoh use. She reports her father was an alcoholic. (SAVAGE GAONA LCSW) Current Mental Status Mental Status Orientation: Person, Place, Situation Affect: Depressed Speech: WNL Neuro-vegetative: Anhedonia, Appetite Decreased, Concentration Poor, Energy Decreased, Helpless, Loss of Interest, Sleep Disturbance Appearance Appearance- Dress/Hygiene: hospital scrubs, laying in bed covered in blanket, multiple superficial lateral cuts on inner left arm Behaviors Thought Process: WNL Thought Content: WNL Memory: WNL Insight: Fair SI/HI Risk Assessment Past Suicidal Ideation/Attempts Yes Current Suicidal Ideation/Att Yes Past Homicidal Ideation/Att: No Current Homicidal Ideation/Attempts No Degree of Intent: Thoughts/No Intent Danger To: Self Gravely Disabled: Poor Impulse Control, Poor Judgment Risk Factors: high anxiety/distress, SA/MH hospitalized, substance abuse, poor impulse control Lethality Ratin PTSD Checklist PTSD Done? 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 Tox screen is positive for cocaine and cannbis. Pt presenting as tearful and reporting SI. (SAVAGE GAONA LCSW) Departure Disposition Psych Medical Clearance Date: 07/31/16 Medically Cleared at: 0 Time Started: 2204 Time Ended: 2244 Psychiatrist Consulted: Nathaniel Argueta MD Date Disposition Established: 07/31/16 Time Disposition Established: 2300 Plan for Disposition - Modality: H/O re-eval Rationale for Disposition: Pt presenting as depressed and reporting current SI. Pt tox screen is positive for cocaine, cannabis, methadone and amphetamines. Pt will be h/o in ED and re- eval in morning when less under the influence of substances. Referrals CLARISA ROMERO,MAYTE Lau (PCP/Family) (SAVAGE GAONA LCSW) Disposition Psych Medical Clearance Date: 08/01/16 Medically Cleared at: 0800 Time Started: 0800 Time Ended: 899 Psychiatrist Consulted: Tiffanie Mccall MD Disposition Established: 08/01/16 Time Disposition Established: 899 Plan for Disposition - Modality: Inpatient Psychiatry Facility: [facility] Rationale for Disposition: safety and stabiloization of sx Type of IP Admission: Voluntary (FELIPE ARGUETA,SORAIDA) Addendum Addendum Crisis re-evaluated pt this morning. She presents with a depressive affect and continues to express SI. She denies a specific plan and informs that she always feels suicidal, but lately her suicidal thought have become worse and more intrusive. Although she has never acted on her suicidal thoughts, she is worried that it has gotten to the point that if she is released that she may act on it this time. she requests inpt psych tx for safety and stabilization. She expresses that she does not think that her psych meds are as helpful as they used to be and that they need adjusting. Additionally, she identifies a trigger for her right now is that her fiance's friend is living with them right now and it makes her feel uncomfortable. Crisis called [facility] in [place] and confirmed that her daily methadone dose is 110mg. she was last medicated yesterday and had a take home bottle for today. she is medicated there 3x weekly Fri, Fri, and friday and gets take home bottles for ,, Saturdays and Sundays. They would like to be notified when she is discharged as she has received a take home bottle for . Crisis also called pt's psychiatrist Dr Gonsalez and left a message. Additionally, crisis called pt's fiance Kumar Whalen and left a voice massage. Case was reviewed with Dr Mccall of Psychiatry and pt will be admitted to [facility]. (FELIPE ARGUETA,SORAIDA)
--- NOTE | 2016-07-31 23:23 | NUR ---
REPORT GIVEN TO NURSE ADITI H AND PT STILL AWAKE AND DENIES ANY C/O PAIN
--- NOTE | 2016-08-01 | NUR ---
KELTON TAYLOR Nurse Note by: MANA YANG I agree with the AUTOMATED CUTTING MACHINE OPERATOR findings/evaluation of this patient's condition. Entered by: MANA YANG. Date: 08/01/16 Time: 0000
--- NOTE | 2016-08-01 00:10 | NUR ---
REMAINS ASLEEP, AROUSABLE BUT FALLS BACK TO SLEEP PROMPTLY. NO DISTRESS. WILL MONITOR.
--- NOTE | 2016-08-01 05:12 | NUR ---
PATIENT SLEEPING AT THIS TIME W/ REGULAR RESPIRATIONS NOTED. LIGHTS REMAIN DIMMED. SITTER REMAINS W/ PATIENT. NO ACUTE DISTRESS NOTED.
--- NOTE | 2016-08-01 07:30 | NUR ---
ASSUMED CARE, PT SLEEPING, SITTER IN ATTENDANCE.
--- NOTE | 2016-08-01 08:45 | NUR ---
[facility] CALLED TO VERIFY METHADONE DOSE. RECEIVED 110 MG 07/31, AND A TAKE HOME BOTTLE FOR TODAY OF 110 MG.
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
--- NOTE | 2016-08-01 10:30 | NUR ---
SLEEPING INTERITTANTLY.
--- NOTE | 2016-08-01 12:09 | NUR ---
REPORT TO KATALINA JUNIOR.
--- NOTE | 2016-08-01 12:14 | NUR ---
REPORT TO KATALINA JUNIOR.
[2016-08-01 12:51] VITALS: BP 120/72
[2016-08-01] MEDS ORDERED: WELLBUTRIN SR150 M1 PO (13:17)
[2016-08-01] MEDS ORDERED: VRAYLAR1.5 MG PO (13:18)
--- NOTE | 2016-08-01 13:29 | NUR ---
PT IS ALERT AND ORIENTED AND IN NO ACUTE DISTRESS, COOPERATIVE OVERALL HOWEVER BECAME DISRESPECTFUL AND LOUD/PRESSURED WHEN LIMITS RE: APPROPRIATE/ALLOWED CLOTHING WAS OUTLINED. MOOD IS STABLE WITH FULL RANGE AFFECT & IS APPROPRIATE HOWEVER DOES REPORT AN INCREASE IN DEPRESSION RECENT AND INTERMITTENT PASSIVE SI (NO PLAN) HOWEVER IT IS NOT CURRENTLY FEELING THIS WAY AND WOULD INFORM STAFF IF ANYTHING CHANGED AND FEELS SAFE ON THE UNIT AND WOULD NOT HARM SELF, IS ALSO MOTIVATED FOR HELP AND FURTURE ORIENTED, WAS ABLE TO IDENTIFY STRENGTHS AND TRIGGERS FOR RELAPSE. WHEN ASKED DIRECTLY SIMON HI/HALLUCINATIONS. MEDICATIONS RECONCILED AND DR. ESPINAL WILL BE CONTACTED IN A THIS EVENING TO ADDRESS ANY INCONSISTENCIES. SKIN THAT IS VISIBLE IS CLEAN DRY AND INTACT WITH THE EXCEPTION OF LEFT FOREARM WITH NOTED/CONFIRMED SELF INFLICTED SUPERFICIAL (NORMAL HEALING) LACS AND DENIES ANY OTHER ALTERATIONS TO SKIN THAT IS NOT VISIBLE.
--- NOTE | 2016-08-01 15:25 | History & Physical ---
General Information and HPI MD Statement: I have seen and personally examined KELTON TAYLOR and documented this H&P. The patient is a 36 year old F who presented with a patient stated chief complaint of []. Source of Information: patient, old records Exam Limitations: no limitations History of Present Illness: "Pt is a 36 yo female brought to [facility] ED this morning by her fiance. Pt reports leaving the home at 2am to score crack cocaine. Pt reports that she was clean for 2.5 yrs after an inpatient detox at [facility]. Pt reports long standing hx of mental health and substance abuse and has been on methadone maintence past 10yrs. Pt reports receiving methadone 110mg at [facility] and is treated for depression and borderline personality d/o by Dr Whipple in [place]. Pt reports increase stress and depression prior to relapse. Pt gave self-inflicted cuts to arm early this morning "to try to take away the pain". Pt reports being suicidal "all the time" and lately wishes she would act upon it. Pt reports no prior attempts. Pt reports daily cannabis use and denies etoh use. Pt reports her father was an alcoholic. Pt presents as tearful, lethargic and OX3. Pt expressing need for inpatient psychiatric treatment". DENIES ANY NEW COMPLAINTS TO ME. Allergies/Medications Allergies: Coded Allergies: Sulfa (Sulfonamide Antibiotics) (Intermediate, HIVES 05/13/16) Home Med list Aripiprazole (Abilify) 10 MG TABLET 1 TAB PO DAILY MENTAL HEALTH (Reported) Bupropion HCl (Wellbutrin Sr) 150 MG TABLET.ER 150 MG PO BID SMOKING CESSATION (Reported) Clonidine HCl 0.1 MG TABLET 1 TAB PO TID MENTAL HEALTH (Reported) Duloxetine HCl 30 MG CAPSULE.DR 1 CAP PO DAILY MENTAL HEALTH (Reported) Lorazepam (Ativan) 1 MG TABLET 1 TAB PO TID ANXIETY (Reported) Methadone HCl 10 MG/ML ORAL.CONC 110 MG PO DAILY MAINTENCE (Reported) Compliance With Home Meds: FAIR Past History Travel History Traveled to [place] past 21 day No Medical History Neurological: NONE EENT: NONE Cardiovascular: NONE Respiratory: NONE Gastrointestinal: NONE Hepatic: NONE Renal: NONE Musculoskeletal: herniated discs cervical spine Psychiatric: opioid dependence Endocrine: NONE Blood Disorders: NONE Cancer(s): NONE LARD RENDERER/Reproductive: NONE History of MRSA: No History of VRE: No History of CDIFF: No Surgical History Surgical History: non-contributory Past Family/Social History Psychosocial History Past Psychosocial History Unobtainable at this time Where do you live? Home Who Do You Live With? spouse Primary Language: Iraqi Smoking Status: Current Everyday Smoker ETOH Use: occasional use Illicit Drug Use: cocaine, heroin, marijuana Employment History Employment Unemployed Review of Systems Review of Systems Constitutional: Denies: no symptoms. EENTM: Denies: no symptoms, see HPI. Cardiovascular: Denies: no symptoms, see HPI. Respiratory: Denies: no symptoms, see HPI, cough. GI: Denies: no symptoms, see HPI, abdominal pain, bloating. Genitourinary: Denies: no symptoms, see HPI, discharge. Musculoskeletal: Denies: no symptoms, see HPI, back pain. Skin: Denies: no symptoms, see HPI, cysts, change in skin color. Neurological/Psychological: Denies: no symptoms, see HPI, anxiety. Hematologic/Endocrine: Denies: no symptoms, see HPI. Immunologic/Allergic: Denies: no symptoms, see HPI. Exam & Diagnostic Data Last 24 Hrs of Vital Signs/I&O Vital Signs Date Time Temp Pulse Resp B/P B/P Pulse O2 O2 Flow FiO2 Mean Ox Delivery Rate 08/01 1251 96.8 86 120/72 08/01 1042 98.0 84 18 104/70 100 Room Air 08/01 0541 97.8 71 20 104/56 95 Room Air 07/31 2230 97.1 75 17 111/60 96 Room Air 07/31 2004 97.0 78 18 105/55 97 Room Air 07/31 1800 98.0 77 16 100/59 96 Room Air 07/31 1530 97.8 82 17 108/54 96 Room Air Intake & Output 08/01 1600 08/01 0800 08/01 0000 Intake Total Output Total Balance Patient 84.425 kg Weight Physical Exam General Appearance Alert, Oriented X3, Cooperative, No Acute Distress Skin No Rashes, No Breakdown HEENT Atraumatic, PERRLA, EOMI Neck Supple, No JVD, No thryomegaly Cardiovascular Regular Rate Lungs Clear to Auscultation, Normal Air Movement Abdomen Normal Bowel Sounds, Soft, No Tenderness Neurological Exam Findings: Normal Gait, Normal Speech Cranial Nerves II through XII: intact Extremities No Clubbing, No Cyanosis Vascular Normal Pulses Last 24 Hrs of Labs/Luis: Laboratory Tests 07/31/16 2225: Urine Opiates Screen < 100.00, Methadone Screen > 735 H, Barbiturate Screen 70, Ur Phencyclidine Scrn 10.00, Amphetamines Screen > 1450 H, U Benzodiazepines Scrn 126, Urine Cocaine Screen > 1000 H, Urine Cannabis Screen 78.00 H, Urine Color YEL, Urine Clarity CLEAR, Urine pH 6.0, Ur Specific [place] >= 1.030, Urine Protein NEG, Urine Ketones NEG, Urine Nitrite NEG, Urine Bilirubin NEG, Urine Urobilinogen 1.0, Ur Leukocyte Esterase NEG, Ur Microscopic EXAM NOT REQUIRED, Urine Hemoglobin NEG, Urine Glucose NEG, Urine Test NEGATIVE Assessment/Plan As Ranked By This Provider Problem List: 1. Major depression Miscellaneous Miscellaneous Documentation Attending Case Discussed With: ESTEFANIA FERREIRA,ALOK Jarrell Primary Care Physician: MAYTE CARDONA Patient sees these Specialists none Level of Patient Care: KATALINA Bailon MD Review Statement Attending Statement Attending MD Statement: examined this patient, reviewed EMR data (avail), discussed with nursing Attending Assessment/Plan: 36 with pmh of polysubstance abuse comes with acute pyshcoiss and suicidal ideations admitted to [facility] consulted, further management as per ezequiel.
[2016-08-01 16:19] VITALS: BP 124/77; BP 125/66
--- NOTE | 2016-08-01 17:42 | NUR ---
PT IS CALM, COOPERATIVE WITH STAFF AND PEERS, AND COMPLIANT WITH UNIT RULES. BOTH IN AND OUT OF MILIEU, INTERACTIGN TO SOME EXTENT WITH OTHERS. MOOD IS STABLE, AFFECT APPEARS EUTHYMIC, COMMUNICATION IS ORGANIZED AND APPEARS NORMAL IN ALL RESPECTS, AND APPETITE IS NORMAL. PT DENIES SI AT THIS TIME.
[2016-08-01 19:56] VITALS: BP 117/66
--- NOTE | 2016-08-02 05:33 | NUR ---
36 YR OLD VOLUNTARY ADMISSION FOR DEPRESSION AND RELAPSE ON CRACK COCAINE. PT HAD BEEN ABSTINENT FROM CRACK COCAINE FOR 2.5 YEARS. PT COOPERATIVE AND VISIBLE. HER 2 KIDS VISITED AT 2039, AND RAQUEL BROUGHT IN FREE "FIDGET SPINNERS" FOR THE PATIENTS, PENDING APPROVAL BY DIRECTOR INFORMATICS DEMARCUS Lockett. PT SLEPT.
[2016-08-02 07:32] VITALS: BP 112/71
--- NOTE | 2016-08-02 11:07 | NUR ---
PT IS STABLE WITH FULL RANGE OF AFFECT, VISIBLE WITHIN THE COMMUNITY AND INTERACTING WITH PEERS/STAFF. PT HAS BEEN ATTENDING GROUPS ALL MORNING. STATED THAT SHE SLEPT WELL, POSITIVE MOOD, GOAL IS TO ATTEND ALL GROUPS. PT REPORTS FEELING A BIT ANXIOUS AND JUST NEEDING TO "ADJUST TO THE UNIT". VS ARE STABLE AND DENIES ANY SI/HI TO THIS MHW.
[2016-08-02 12:23] VITALS: BP 113/68
--- NOTE | 2016-08-02 15:28 | SOCIAL WORKER PROG NOTE PSYCH ---
Social Work Progress Note Progress Note Met with Renetta today. She was in bed. She stated she is "feeling antsy, and anxious to meet with Dr. Dickey. She stated she had some thoughts today while in an [employer] of wanting to cut herself. She told staff and they removed the scissors. She has about 10 cuts on her left arm and wrist. She cuts herself about 1x per month. She stated she used a knife to do this prior to admission. She reports no self harm on the unit since admission. She denied SI/HI, no psychosis, but stated how very depressed she is and "feel like I have no purpose in this world." She stated she has no job, and mostly sleeps all day at home. She does care for her 9yo son, Alphonse (his birthday is this Friday). She identified triggers as her son's weight, he is 200lbs. She struggles with how to help him. She stated she has been clean off Crack cocaine for the past 2-1/ 2yrs, she has been to AA/NA in the past but was not going to any meetings in a while. She relapsed 3 days ago, because her finace had his nephew live with them, and he was struggling with drug use, which triggered her to relapse. Renetta identified her mirianRandy samueler as a support and stated he does not use drugs. She signed an MARILEE for her maribelRandyer and agreed for him to come in for a couples meeting. She also signed MARILEE for Dr. Gonsalez, and [facility]. She sees a counselor, Dayami at [facility] "a couple times per week." She stated she does not like groups at [facility]. She stated she wants her medicatios Dr. Gonsalez prescribed Adderall 20mg in AM and 15mg in PM, and Vraylar (for sleep. She identified herself as having Borderline personality disorder. She was pleasant, calm and seemed to be able to be reasoned with. She agreed to be safe on the unit, and talk to staff if she is feeling unsafe. She stated she wants to get better.
[2016-08-02 15:48] VITALS: BP 119/71
--- NOTE | 2016-08-02 16:17 | SOCIAL WORKER TX PLAN PSYCH ---
Treatment Plan - Please Document: - Evidence that there is ongoing collaboration between - the patient and the interdisciplinary team, - including the patient's active participation and - responsibility for engaging in the treatment regimen, - and that the treatment plan is individualized and - relevant to the patient's conditions. - Treatment plan should reflect documentation indicating - that all active therapeutic efforts are included. Strengths/Capabilities: supportive family reports wanting help to feel better Physical Limitations (Interventions): none reported DSM5/PS Stressors/Medical Prob Diagnosis' (DSM 5, Stressors, Medical): Unspecified Depression (F32.9) Cocaine Use D/O (F14.20) Opiate Use d/o maintenance (F11.20) Cannabis use d/o (F12.20) Borderline Personality d/o(F60.3) relapse Current GAF: 25 Treatment Team - Responsibilities of members of the treatment team include: - Medication Management- MD or VP OF MARKETING - Medication Administration and Monitoring- Nurse - Group Therapy- Occupational Therapist - 1:1 Therapy,Disch Planning,family involvement-Backhaul Driver
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
--- NOTE | 2016-08-02 17:39 | NUR ---
PT IS CALM, COOPERATIVE WITH STAFF AND PEERS, AND COMPLIANT WITH UNIT RULES. OFTEN IN MILIEUY, PT IS INTERACTING WELL WITH OTHERS. MOOD IS STABLE, AFFECT APPEARS EUTHYMIC TO FULL RANGE, COMMUNICATION IS ORGANIZED AND APPEARS NORMAL IN ALL RESPECTS, AND APPETITE IS NORMAL. PT DENIES SI AT THIS TIME.
[2016-08-02 19:40] VITALS: BP 111/74
[2016-08-03 08:13] VITALS: BP 104/67
[2016-08-03 12:02] VITALS: BP 140/83
--- NOTE | 2016-08-03 12:43 | NUR ---
OUT IN COMMUNITY SOCIAL WITH PEERS. MOOD IS STABLE, FULL RANGE OF AFFECT. DENIED THOUGHTS OF SELF HARM WHEN ASKED.
--- NOTE | 2016-08-03 14:41 | CP SOUTH PROGRESS NOTE PSYCH ---
Psych (Inpt) Progress Note Progress Note Include the following elements, when applicable: Involvement in the active treatment of the patient with behavioral observations of the patient and the patient's response to the treatment. Review of the ongoing treatment process in the context of the treatment plan. Indication of how multi-disciplinary staff members are carrying out the treatment plan. Plans for future interventions and recommendations for revision of the treatment plan. Liaison with other physicians/providers. Progress Note: Stated that she slept fantastic last night, and that she had no nightmares, that this was after her first dose of prazosin. Happy that her family came to visit her,and family would come tomorrow as well. Stated that she doesnt have a plan; but if she did she would want to take an overdose. She said that the suicidal thuoghts just dont go away, but she does not want to . She stated that she has her son to live for and her family. When further discussing her depressive thoughts, she said she feels that she serves no purpose, giving example that she does not work, last job was when she was with her 9 year old son. She stated that her does not want her to work; but that she is looking into it in the future. She stated that she had a relapse last week on crack for 3 days, before that she was clean for 2.5 years; has little concern for another relapse. MSE: young woman, well groomed, calm, cooperative and pleasant. Well related, affect is full and mod is good. Thought process is linear. Thought content is positive for intrusive thoughts of wanting to at times, not current, she has no desire to and has no plan. No delusional thinking elicited. Her insight to current sx is fair, judgment is good. She has no voices and not internally preoccupied. Plan: continue current plan of care. She stated that she had no nightmares and is happy with her stay here; improved sleep per her.
[2016-08-03 15:29] VITALS: BP 152/89
[2016-08-03 20:38] VITALS: BP 143/92
--- NOTE | 2016-08-03 21:21 | NUR ---
PT IS VISIBLE ON UNIT, SOCIALIZING WITH PEERS AND VISITING WITH FAMILY THROUGHOUT EVENING. PT DID ATTEND WRAP UP MEETING. PLEASANT AND COOPERATIVE WITH STAFF. NO COMPLAINTS OR SI REPORTED TO STAFF. PT HAS A STABLE MOOD AND FULL RANGE AFFECT.
--- NOTE | 2016-08-03 22:59 | NUR ---
DR. LOZANO CALLED RE PATIENT'S REPORT OF INCREASED ANXIETY AND INABILITY TO SLEEP; PER PATIENT SEROQUEL IS HELPFUL, SO A ONE TIME DOSE OF SEROQUEL 25MG WAS ORDERED.
--- NOTE | 2016-08-04 05:52 | NUR ---
PATIENT SLEPT ALL NIGHT.
[2016-08-04 07:56] VITALS: BP 122/61
--- NOTE | 2016-08-04 12:08 | NUR ---
PT IS PRESENT WITHIN THE MILIEU AND SOCIAL WITH PEERS AND OVERALL APPROPRIATE WITH STAFF HOWEVER CAN BECOME IRRITABLE AND ABRUPT AT TIMES WITH STAFF OVER MINISCULE ISSUES SUCH COFFEE NOT BEING OUT EARLY ENOUGH AND THE LENGTH OF TIME PEERS ARE ON THE PHONE. YET, OVERALL STABLE, NO ISSUES REPORTED OR OBSERVED, SUPERFICIAL LACS TO LEFT FOREARM (PRESENT ON ADMISSION INSOLE BUFFER TO UNIT) HEALING WELL, NO S/SX OF INFECTION. IN PLANNING MEETING REPORTED + SLEEP, FEELING SAD THAT IT IS HER SONS BIRTHDAY AND HER GOAL BEING TO HAVE A GOOD VISIT WITH HIM, ALSO ATTENDED PLANNING MEETING WHERE SHE DEMONSTRATED A + PARTICIPATION IN THE GROUP ACTIVITY.
[2016-08-04 12:13] VITALS: BP 145/91
--- NOTE | 2016-08-04 12:51 | [facility] SOUTH PROGRESS NOTE PSYCH ---
See Addendum Psych (Inpt) Progress Note Progress Note Include the following elements, when applicable: Involvement in the active treatment of the patient with behavioral observations of the patient and the patient's response to the treatment. Review of the ongoing treatment process in the context of the treatment plan. Indication of how multi-disciplinary staff members are carrying out the treatment plan. Plans for future interventions and recommendations for revision of the treatment plan. Liaison with other physicians/providers. Progress Note: Had worse sleep last night, stating that she had seroquel to help her in the past and that it helped last night (got 1x dose). Apart from this she is doing well. She stated that she is looking forward to seeing her son today. MSE: young woman, well groomed, calm and cooperative. She is well related and coherent. Her affect is full and mood is good. Thought process is linear. Thought content is free of delusional thinking. No evidence of thoughts to harm herself or anyone else. No delusional thinking elicited. Her insight to current sx is fair, judgment is good. She has no voices and not internally preoccupied. Plan: continue current plan of care. Will add PRN seroquel at night time for sleep discussed trazodone, benadryl, remeron, vistaril as other options and she stated that she has tried them w/o effect, including trazodone over 300mg; discussed that seroquel is an antipsychotic medication and used off label for sleep. She was agreeable.
[2016-08-04 15:51] VITALS: BP 113/67
--- NOTE | 2016-08-04 19:38 | NUR ---
PT HAS BEEN IN HER ROOM FOR THE MAJORITY OF THE EVENING SHIFT. SHE HAS BEEN COMPLIANT WITH STAFF RULES AND NOT REPORTED ANY THOUGHTS TO SELF HARM. SHE POSITIVELY INTERACTS WITH PEERS AND ENJOYED A VISIT WITH HER SON. WHILE AWAKE PT HAS DISPLAYED A CONTRICTED-FULL RANGE AFFECT AND DENIES ANY THOUGHTS OF SI.
--- NOTE | 2016-08-05 05:18 | NUR ---
PT SLEPT AFTER SEROQUEL 50 PRN AT 2215.
[2016-08-05 07:53] VITALS: BP 99/60
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
[2016-08-05 12:33] VITALS: BP 115/62
--- NOTE | 2016-08-05 13:35 | NUR ---
PT IS STABLE WITH CONSTRICTED AFFECT. PT HAS BEEN VISIBLE WITHIN THE COMMUNITY AND INTERACTING WITH PEERS/STAFF. CAN BE LABILE AT TIMES AND EASILY AGGRAVATED. PT BECAME FURIOUS WHEN TOLD HER ROOM HAD TO BE MOVED AND BEGAN SWEARING AT STAFF. RN WAS ABLE TO CALM PT DOWN BY TELLING HER THAT WE WOULD TRY TO ACCOMODATE HER BEST POSSIBLE. PT DOES NOT RESPOND POSITIVELY TO LIMIT SETTING. ATTENDING GROUPS BUT NOT OFFERING MUCH INTERACTION, SLEEPS THROUGH ENTIRE GROUP. VS ARE STABLE AND DENIES ANY SI/HI TO THIS MHW.
[2016-08-05 16:34] VITALS: BP 110/78
--- NOTE | 2016-08-05 18:36 | SOCIAL WORKER PROG NOTE PSYCH ---
Social Work Progress Note Progress Note COMPLETED ONLINE [facility] REVIEW - CHECK WEB FOR REVIEW DATE.
[2016-08-05 20:07] VITALS: BP 102/70
--- NOTE | 2016-08-05 20:14 | NUR ---
PT IS CALM, COOPERATIVE WITH STAFF AND PEERS, AND COMPLIANT WITH UNIT RULES. OFTEN IN MILIEU, THOUGH STAYING IN THE PERIPHERY OFTEN. WILL INTERACT WITH OTHERS TO AN EXTENT. MOOD IS STABLE, AFFECT APPEARS EUTHYMIC TO FULL RANGE, COMMUNICATION IS ORGANIZED AND APPEARS NORMAL IN ALL RESPECTS, AND APPETITE IS NORMAL. PT DENIES SI AT THIS TIME.
--- NOTE | 2016-08-05 20:30 | CP SOUTH PROGRESS NOTE PSYCH ---
Psych (Inpt) Progress Note Progress Note Include the following elements, when applicable: Involvement in the active treatment of the patient with behavioral observations of the patient and the patient's response to the treatment. Review of the ongoing treatment process in the context of the treatment plan. Indication of how multi-disciplinary staff members are carrying out the treatment plan. Plans for future interventions and recommendations for revision of the treatment plan. Liaison with other physicians/providers. Progress Note: PSYCHIATRIST NOTE, 08/05/2016: I discussed this patient's progress to date, current mental status, treatment and discharge planning with staff team today in the daily morning ITTM and also met with her myself in individual session. Patient continues to be dysphoric and endorse suicidal ideation though her mood in general appears more neutral to somewhat irritable than sad/depressed but is still apprehensive with regard to panic anxiety symptoms but without increase in these since initiation and upward titration in dose of Zoloft to 50mg/day over the past weekend; following further discussion of the R/B/SE of this SSRI at higher dose range patient agreed to my increasing dose tomorrow morning, 08/06/2916, to 75mg/ day.
--- NOTE | 2016-08-06 05:49 | NUR ---
PT SLEPT AFTER SEROQUEL 50 PRN AT 2130.
[2016-08-06 07:53] VITALS: BP 114/78
--- NOTE | 2016-08-06 09:15 | NUR ---
STAFF ATTEMPTED TO REDIRECT PT FROM BEING LOUD AND USING FOUL LANGUAGE IN THE COMMUNITY. SHE THEN CALLED [facility] A "F-ING BITCH" AND THREATENED TO MEET HER OUTSIDE AND "TAKE CARE OF HER". SHE REFUSED TO LOWER HER VOICE OR COMPLY WITH STAFF SO SECURITY WAS CALLED
--- NOTE | 2016-08-06 11:44 | NUR ---
PT WAS IN BETTER BEHAVIORAL CONTROL AFTER SECURITY SPOKE WITH HER. SHE IS TAKING HER MEDS AND ATTENDING GROUPS. WHEN ASKED SHE DENIED ANY THOUGHTS OF SUICIDE OR SELF HARM
[2016-08-06 12:29] VITALS: BP 118/78
--- NOTE | 2016-08-06 13:45 | NUR ---
PT HAD A BETTER AFTERNOON. SHE WAS CALM AND IN CONTROL OF HER BEHAVIOR. SHE HAD A FAMILY MEETING TODAY AND SHE EXPECTS DISCHARGE TOMORROW. SHE DENIED ANY THOUGHTS OF SUICIDE OR SELF HARM
--- NOTE | 2016-08-06 14:26 | CP SOUTH PROGRESS NOTE PSYCH ---
Psych (Inpt) Progress Note Progress Note Include the following elements, when applicable: Involvement in the active treatment of the patient with behavioral observations of the patient and the patient's response to the treatment. Review of the ongoing treatment process in the context of the treatment plan. Indication of how multi-disciplinary staff members are carrying out the treatment plan. Plans for future interventions and recommendations for revision of the treatment plan. Liaison with other physicians/providers. Progress Note: PSYCHIATRIST NOTE (COUPLE'S MEETING), 08/06/2016: I discussed this patient's progress to date, current mental status, treatment and discharge planning with staff team today in the daily morning ABENA and Angeles Oleary LCSW, our medical student Lokesh and I met with the patient and her partner of 12 years in a couple's session.
--- NOTE | 2016-08-06 15:40 | SOCIAL WORKER PROG NOTE PSYCH ---
Social Work Progress Note Progress Note Security was down on the unit this morning due to Renetta becoming agitated and threatening towards a mental health worker who was trying to encourage group attendance and set limits this morning. Received a call from Serena at Dr. Gonsalez's office looking for an update. I called her back and got her voicemail. Left an update and requested to know when her next appt. was with Dr. Gonsalez. Renetta's significant other Kumar came in for a family meeting at 1pm. Dr. Houser was present for this meeting. Kumar voiced concerns around ensuring she is ready to come home and can demonstrate that she won't be engaging in self harm behavior. He said in the 12 years they have been together he has only seen her engage in that type of behavior a couple of times. He focused alot on what he describes as "addict behavior", but what he was describing could also be related to her depression, such as isolating in her room. She seemed to get frustrated at the meeting with how he was referring to her. She doesn't feel that he acknowledges her mental health symptoms. She doesn't feel that he gives her enough credit or positive feedback for the things she does. He acknowledged his issues related to "control" at the meeting. She stated that he doesn't let her leave the house, have friends, money ect.. He reported that he doesn't care for some of the friends that she has had. He reported that they "trade pills" and it's not a good relationship. He is open to giving her money for things "within reason." Dr. Houser encouraged them to work on their communication with eachother and that maybe making "rules of the house" or lists of things to be checked off would be helpful. Couples counseling was recommended as well. Talked about discharge for tomorrow, as Renetta has really achieved maximum hospital benefit and the rest of the work can be done outpatient. Kumar is okay with picking her up tomorrow at 2pm.
[2016-08-06 16:41] VITALS: BP 120/80
--- NOTE | 2016-08-06 17:42 | NUR ---
PT IS CALM, COOPERATIVE WITH STAFF AND PEERS, AND COMPLIANT WITH UNIT RULES. BOTH IN AND OUT OF MILIEU, PT AT TIMES APPEARS LETHARGIC AND STAYS IN PT ROOM TO REST. WHEN IN MILIEU, PT INTERACTS WELL WITH OTHERS. MOOD IS STABLE, AFFECT APPEARS EUTHYMIC TO FULL RANGE, COMMUNICATION IS ORGANIZED AND APPEARS NORMAL IN ALL RESPECTS, AND APPETITE IS NORMAL. PT DENIES SI AT THIS TIME.
[2016-08-06 19:56] VITALS: BP 128/62
--- NOTE | 2016-08-07 07:00 | NUR ---
PT WITH NO OUTBURSTS ON EVENINGS. PT SLEPT AFTER RECEIVING SEROQUEL 50 PRN AT 2200 AND 2300. PT DC TODAY.
[2016-08-07 08:05] VITALS: BP 108/64
--- NOTE | 2016-08-07 09:04 | NUR ---
PT IS TENTATIVELY LEAVING AT 2PM TODAY, STILL HAS TO MEET WITH EQUIPMENT TECHNICIAN AND PSYCHIATRIST HOWEVER THIS IS THE PLAN THUS FAR. PT HAS BEEN PARTICIPATING IN GROUPS, PRESENT WITHIN THE MILIEU AND OVERALL APPROPRIATELY INTERACTING WITH PEERS AND STAFF. WHEN ASKED DIRECTLY DENIES SI/HI/HALLUCINATIONS AND REPORTS AN IMPROVEMENT IN MOOD/BEHAVIOR/THOUGHTS/MENTAL STATUS, + SLEEP AND APPETITE, NO COMPLIANTS OR ISSUES REPORTED OR OBSERVED. HAS A + UNDERSTANDING RE: MEDICATION REGIMENT AND FOLLOW-UP DISCHARGE PLANNING AND VERBALIZES UNDERSTANDING AND MOTIVATION, FUTURE ORIENTED, MOOD STABLE. INFORMATION PACKET: COCAINE ABUSE, SI, DEPRESSION GIVEN WELL AND PT RESOURCE GUIDE AND W-10 REVIEWED WITH PT WELL.
[2016-08-07 12:10] VITALS: BP 92/59
[2016-08-07] MEDS ORDERED: ABILIFY5 M1 PO (13:23)
[2016-08-07] MEDS ORDERED: SERTRALINE HCL25 MG PO (13:23)
[2016-08-07] MEDS ORDERED: PRAZOSIN HCL5 M1 PO (13:23)
--- NOTE | 2016-08-07 13:36 | SOCIAL WORKER PROG NOTE PSYCH ---
Social Work Progress Note Progress Note Renetta is feeling good and happy to be discharging today. Asked what her thoughts were about the family meeting yesterday? She said she it was okay, but there were things that bothered her. She didn't feel that Kumar is compassionate enough towards her issues and she feel he blames her alot for things. She also doesn't feel that he is ready to acknowledge his gambling issues and his role in their relationship and how things are. I told her to use some of what was discussed yesterday to start working on some small changes in their communication. Suggested the list of what needs to be done may be a good place to start and to check it off as she does things. She seemed positive about things improving and working out. Talked about getting out for walks and activities with her son through the summer. She said she also has a gym membership and goes to work out several times a week. She feels that her hospital stay was beneficial in the fact that her meds are right now. Kumar will pick her up at 2pm. She will go to [place] tomorrow and start IOP soon.
--- NOTE | 2016-08-07 16:52 | CP SOUTH PROGRESS NOTE PSYCH ---
Psych (Inpt) Progress Note Progress Note Include the following elements, when applicable: Involvement in the active treatment of the patient with behavioral observations of the patient and the patient's response to the treatment. Review of the ongoing treatment process in the context of the treatment plan. Indication of how multi-disciplinary staff members are carrying out the treatment plan. Plans for future interventions and recommendations for revision of the treatment plan. Liaison with other physicians/providers. Progress Note: PSYCHIATRIST NOTE (DISCHARGE), 08/07/2016:
--- NOTE | 2016-08-07 16:53 | DISCHARGE SUMMARY REPORT-PSYCH ---
Visit Information Visit Dates/Diagnosis' Admission Date: 08/01/16 Discharge Date: 08/07/16 Reason for Admission: " Psy Discharge Primary Diag: Unspecified Mood Disorder Unspecified Bipolar Disorder; MRE Depressed R/O Unspecified Anxiety Disorder with Panic sx Polysubstance Use Disorder; R/O contributes to mood disorder symptoms Hospital Course Course Allergies: Coded Allergies: Sulfa (Sulfonamide Antibiotics) (Intermediate, HIVES 05/13/16) Discharge HBIPS - Tobacco Use Treatment Offered - EtOH/Drug Use D/O Treatment Offered Metabolic Screening - Screen if on a Neuroleptic Medication - Metabolic screening should include: - Blood Pressure, BMI, Glucose or Hgb A1c, & a - Lipid profile from within the past 365 days.
== END 2016-08-07 14:25 | DRG 753 ==
LOC: ERH 10:51 → CP SOUTH 08-01 10:05 → ERHI 08-01 10:05 → ENTRNSPT 08-01 12:14 → EDTRNSPT 08-01 12:31 → EDTRNSPTSTS 08-01 12:31 → CP SOUTH 08-01 12:39 → CMPTRNSPT 08-01 12:55 → CP SOUTH 08-01 13:25 → ENPENDDIS 08-07 15:00
PROVIDERS: Physician Assistant Medical; ADMIT Psychiatry & Neurology Addiction Medicine
DX: F39 Unspecified mood [affective] disorder (principal); F31.9 Bipolar disorder, unspecified; F41.0 Panic disorder [episodic paroxysmal anxiety]; F19.90 Other psychoactive substance use, unspecified, uncomplicated
CPT/HCPCS: 80307; 81003; 81025; 93005; 93010; G0463; G0480; J0401; J3490